=== PATIENT | male | born 2000 | race African-American/Black ===

== ENCOUNTER 2021-09-24 17:55 | Emergency (ER) | payer BC, OTHER ==
[2021-09-24 18:05] VITALS: BP 150/82; PULSE 75; TEMP 98.9; BMI 21.9
[2021-09-24 20:24] LABS: ALBUMIN 4.3 g/dl (3.4-5.0); BILIRUBIN,TOTAL 1.1 mg/dl (0.2-1); CALCIUM 9.4 mg/dl (8.5-10); CREATININE 0.9 mg/dl (0.55-1.3); TOT PROT 7.3 g/dl (6.4-8.2)
[2021-09-24 21:16] LABS: BASO % 0.2 % (0-2.0); HEMATOCRIT 39.9 % (35.4-49); HEMOGLOBIN 13.1 GM/dL (11.7-16.9); LYMPH % 22.1 % (8-40); MCH 27.7 pg (25.7-33.7); MCHC 32.9 g/dl (32.0-35.9); MEAN CELL VOLUME 84.2 fl (80-96); MEAN PLT VOLUME 11.6 fl (7.5-11.1); MONO % 6.6 % (3.8-10.2); NEUT % 71.1 % (42.8-82.8); PLATELET COUNT 121 10^3/uL (134-434); RBC 4.74 M/mm3 (4.00-5.60); WHITE BLOOD COUNT 5.6 K/mm3 (4.0-10.0)
[2021-09-24] MEDS ORDERED: ONDANSETRON 4 MG TABLET PO ONE (21:50)
[2021-09-24] MEDS ORDERED: ONDANSETRON *ODT* 4 MG TABLET ONE (21:52)
== END 2021-09-24 22:01 | disposition home or self-care (01) ==
LOC: FER 17:55
DX: R11.10 Vomiting, unspecified (principal)
CPT/HCPCS: 36415; 80053; 81003; 83690; 85025; 93005; 99284-25

== ENCOUNTER 2022-06-22 12:05 | Emergency (ER) | payer BC ==
[2022-06-22 12:26] VITALS: BP 146/90; PULSE 72; RESP 16; TEMP 99.2; BMI 21.9
[2022-06-22] MEDS ORDERED: SODIUM CHLORIDE 0.9% 1000 ML INFUS.BAG IV ONE (12:41)
[2022-06-22] MEDS ORDERED: ONDANSETRON 4 MG/2 ML VIAL IVPUSH ONE (12:41)
[2022-06-22] MEDS ORDERED: LORazepam 2 MG/ML SDV VIAL IVPB ONE (12:42)
[2022-06-22] MEDS ORDERED: HALOPERIDOL LACTATE 5 MG/ML IM ONE ×2 (12:42→12:47)
[2022-06-22] MEDS ORDERED: ONDANSETRON 4 MG/2 ML VIAL ONE (12:47)
[2022-06-22 13:19] LABS: HEMATOCRIT 42.1 % (35.4-49); HEMOGLOBIN 14.2 G/dL (11.7-16.9); MCH 28.9 pg (25.7-33.7); MCHC 33.8 g/dl (32.0-35.9); MEAN CELL VOLUME 85.8 fl (80-96); MEAN PLT VOLUME 11.4 fl (7.5-11.1); PLATELET COUNT 146.1 10^3/uL (134-434); RBC 4.91 10^6/uL (4.00-5.60); RDW 14.4 % (11.9-15.9); WHITE BLOOD COUNT 8.3 10^3/uL (4.0-10.8)
[2022-06-22 13:28] LABS: ALBUMIN 4.4 g/dl (3.4-5.0); BILIRUBIN,TOTAL 0.7 mg/dl (0.2-1); CALCIUM 9.6 mg/dl (8.5-10); CREATININE 0.9 mg/dl (0.55-1.3); TOT PROT 7.7 g/dl (6.4-8.2)
== END 2022-06-22 14:39 | disposition home or self-care (01) ==
LOC: FER 12:05
PROC: 3E033GC Introduction of Other Therapeutic Substance into Peripheral Vein, Percutaneous Approach (ICD-10-PCS; principal; 2022-06-22)
PROC: 3E023GC Introduction of Other Therapeutic Substance into Muscle, Percutaneous Approach (ICD-10-PCS; principal; 2022-06-22)
DX: R11.10 Vomiting, unspecified (principal); F12.99 Cannabis use, unspecified with unspecified cannabis-induced disorder
CPT/HCPCS: 36415; 80053; 85027; 99284-25

== ENCOUNTER 2022-06-23 01:21 | Emergency (ER) | payer BC ==
[2022-06-23 01:27] VITALS: BP 146/87; PULSE 102; RESP 16; TEMP 99; BMI 24.4
[2022-06-23] MEDS ORDERED: HALOPERIDOL LACTATE 5 MG/ML IM ONE ×2 (01:27→01:31)
[2022-06-23] MEDS ORDERED: ACETAMINOPHEN INJECTION 100 ML IVPB ONE (01:59)
[2022-06-23] MEDS ORDERED: ACETAMINOPHEN 1000 MG/100 ML BAG IVPB ONE (01:59)
[2022-06-23] MEDS ORDERED: KETOROLAC TROMETHAMINE 30 MG/1 ML VIAL IVPUSH ONE (02:49)
[2022-06-23] MEDS ORDERED: MAG HYDROX/AL HYDROX/SIMETH 30 ML UNIT-DOSE CUP PO ONE (02:49)
[2022-06-23] MEDS ORDERED: MAG HYDROX/AL HYDROX/SIMETH 30 ML UNIT-DOSE CUP ONE (02:53)
[2022-06-23] MEDS ORDERED: KETOROLAC TROMETHAMINE 30 MG/1 ML VIAL ONE (02:53)
== END 2022-06-23 03:04 | disposition home or self-care (01) ==
LOC: FER 01:21
PROC: 3E0333Z Introduction of Anti-inflammatory into Peripheral Vein, Percutaneous Approach (ICD-10-PCS; principal; 2022-06-23)
PROC: 3E0333Z Introduction of Anti-inflammatory into Peripheral Vein, Percutaneous Approach (ICD-10-PCS; 2022-06-23)
PROC: 3E023NZ Introduction of Analgesics, Hypnotics, Sedatives into Muscle, Percutaneous Approach (ICD-10-PCS; 2022-06-23)
DX: R11.15 Cyclical vomiting syndrome unrelated to migraine (principal)
CPT/HCPCS: 99284-25

== ENCOUNTER 2022-09-03 02:19 | Emergency (ER) | payer BC ==
[2022-09-03 02:25] VITALS: BP 139/95; PULSE 94; RESP 16; TEMP 99.2; BMI 24.4
[2022-09-03] MEDS ORDERED: ACETAMINOPHEN 1000 MG/100 ML BAG IVPB ONE (02:57)
[2022-09-03] MEDS ORDERED: SODIUM CHLORIDE 1,000 ML IV STA (02:57)
[2022-09-03] MEDS ORDERED: ONDANSETRON 4 MG/2 ML VIAL IVPUSH ONE ×2 (02:57→03:59)
[2022-09-03] MEDS ORDERED: HALOPERIDOL LACTATE 5 MG/ML IM ONE ×2 (03:19→03:25)
[2022-09-03] MEDS ORDERED: ONDANSETRON 4 MG/2 ML VIAL ONE ×2 (03:19→04:03)
[2022-09-03] MEDS ORDERED: ACETAMINOPHEN INJECTION 100 ML IVPB ONE (03:20)
[2022-09-03 04:57] LABS: BASO % 0.1 % (0-2.0); HEMATOCRIT 42.6 % (35.4-49); HEMOGLOBIN 14.1 GM/dL (11.7-16.9); MCH 27.4 pg (25.7-33.7); MEAN CELL VOLUME 83.2 fl (80-96); MEAN PLT VOLUME 11.5 fl (7.5-11.1); MONO % 5.1 % (3.8-10.2); NEUT % 77.8 % (42.8-82.8); PLATELET COUNT 153 10^3/uL (134-434); RBC 5.12 M/mm3 (4.00-5.60); RDW 14.2 % (11.9-15.9); WHITE BLOOD COUNT 8.9 K/mm3 (4.0-10.0)
[2022-09-03 05:25] LABS: ALBUMIN 4.4 g/dl (3.4-5.0); CALCIUM 9.8 mg/dL (8.5-10.1)
[2022-09-03 05:26] LABS: BLOOD UREA NITROGEN 6.7 mg/dL (7-18)
[2022-09-03 05:30] LABS: TOT PROT 8.2 g/dl (6.4-8.2)
[2022-09-03 05:31] LABS: BILIRUBIN,TOTAL 0.6 mg/dL (0.2-1)
== END 2022-09-03 04:53 | disposition home or self-care (01) ==
LOC: FER 02:19
PROC: 3E0333Z Introduction of Anti-inflammatory into Peripheral Vein, Percutaneous Approach (ICD-10-PCS; principal; 2022-09-03)
PROC: 3E023NZ Introduction of Analgesics, Hypnotics, Sedatives into Muscle, Percutaneous Approach (ICD-10-PCS; 2022-09-03)
PROC: 3E033GC Introduction of Other Therapeutic Substance into Peripheral Vein, Percutaneous Approach (ICD-10-PCS; 2022-09-03)
PROC: 3E033GC Introduction of Other Therapeutic Substance into Peripheral Vein, Percutaneous Approach (ICD-10-PCS; 2022-09-03)
PROC: 3E0337Z Introduction of Electrolytic and Water Balance Substance into Peripheral Vein, Percutaneous Approach (ICD-10-PCS; 2022-09-03)
DX: R11.2 Nausea with vomiting, unspecified (principal); R10.9 Unspecified abdominal pain
CPT/HCPCS: 36415; 74176-TC; 80053; 83690; 85025; 99284-25